=== PATIENT | female | born 1960 | race Caucasian/White ===

== ENCOUNTER → 2021-02-13 | Outpatient (CLI) | payer BC | LOC: KOH-I 14:12 | DX: M06.342 Rheumatoid nodule, left hand (principal) | CPT/HCPCS: 73130 ==

== ENCOUNTER → 2022-02-19 | Outpatient (CLI) | payer BC | LOC: KOH-I 14:06 | DX: R05.9 Cough, unspecified (principal) | CPT/HCPCS: 71046 ==